=== PATIENT | female | born 1975 | race Caucasian/White ===

== ENCOUNTER → 2017-11-11 13:26 | Outpatient (CLI) | payer OTHER, SELFPAY ==
--- NOTE | 2017-11-11 13:40 | US_ITS ---
US extremity LT limited Ultrasound left axilla Ordering Physician: Josiah Canales MD Patient Age: 42 years: Female HISTORY: ITS.REASON: LYMPHADENOPATHY TECHNIQUE: Ultrasound left axilla. COMPARISON :None FINDINGS Bilobed hypoechoic area with irregular contour seen at left axilla. Overall the bilobed area measuring 3.5 cm length x up to 2.4 cm Depth x 1.9 cm transverse. Hypoechoic central portion demonstrates through transmission with appearance suggesting thick somewhat echogenic fluid, suspect likely purulent fluid..Moderately thick wall with irregular margins noted, particularly towards the more superficial component which measures nearly 2 cm.. Is suspect features reflect Suppurative infected node /developing abscess. With overall history of gradual improvement with antibiotics. Doubt cystic necrotic node or some other process. . The posterior component has a tails which extends slightly posteriorly posteriorly & may extend very slightly deeper . With anterior component has the thicker more irregular wall of this bilobed area.. Each of the lobes of this bilobed area measuring roughly 2 cm. Could be 2 adjacent involve Suppurative lymph nodes We understand a clinically the patient states that there has been improvement and decreased size on antibiotics. However Today's ultrasound shows that there is indeed persistent collection persists an evident. IMPRESSION-- Enlarged Suppurative lymph node node,/ abscess appearing area left axilla. This prominent bilobed thick walled structure filled with echogenic fluid , likely thick purulent fluid, measures up to nearly 3.5 cm length maximally..
== END ==
PROVIDERS: PCP Family Medicine; Visit Provider Family Medicine
DX: R59.1 Generalized enlarged lymph nodes (principal)
CPT/HCPCS: 76882

== ENCOUNTER → 2017-11-22 09:38 | Outpatient (CLI) | payer OTHER, SELFPAY ==
--- NOTE | 2017-11-22 10:13 | US_ITS ---
US breast cyst asp HISTORY: Left breast cystic lesion/abscess ITS.REASON: CYST APIRATION ORDERING PHYSICIAN: Abdifatah Clark MD PATIENT AGE: 42 years COMPARISON: Ultrasound of 11/11/2017 TECHNIQUE: Following obtaining informed consent, using aseptic technique and local anesthesia with buffered lidocaine, fine-needle aspiration was performed of the nodule of interest using sonographic guidance... Serosanguineous appearing fluid aspirated from the complex cystic lesion in the left axilla. A 22-gauge spinal needle was inserted and additional aspiration performed. The cavities decreased in volume during the aspiration. The remainder hypoechoic area deep within the axilla and may been due to a hypoechoic lymph node. Approximate 3 cc of serosanguineous aspirate obtained. The patient tolerated the procedure well without evidence of immediate complications and left the ultrasound suite in stable condition. Specimen was sent for cytology and for aerobic and anaerobic cultures and Gram stain. CYTOLOGY:Negative for malignant cells Culture and sensitivity and Gram stain pending IMPRESSION: Uneventful ultrasound-guided aspiration of cystic lesion in the left axilla. The lesion did decrease in size. Culture and sensitivity pending
== END ==
PROVIDERS: PCP Family Medicine; Visit Provider Surgery
DX: N60.09 Solitary cyst of unspecified breast (principal)
CPT/HCPCS: 76641

== ENCOUNTER → 2018-06-16 16:51 | Outpatient (CLI) | payer OTHER, SELFPAY ==
--- NOTE | 2018-06-16 | MM_ITS ---
MM Dig screening mamm BI w/CAD ORDERING PHYSICIAN : Debbie Orourke PATIENT AGE: 43 years GENDER: Female COMPARISON: December 2016 bowel mammogram. Also note ultrasound October 2017, aspiration INDICATION: ITS.REASON: SCREENING recently taking estrogen, stopped estrogen 05/29/2017 No new complaints. Noncontributory family history TECHNIQUE: Standard CC and MLO images were obtained. R2 CAD reviewed. FINDINGS: There is diffuse increased prominence of the fibroglandular elements throughout both breast reflecting lingering effects the recent exogenous estrogen . On this slightly decreases sensitivity but overall pattern is similar to previous studies but merely exaggerated due to hormone effect. I see no discrete new areas of significant concern RIGHT BREAST:No significant new findings Fibroglandular areas gland regions all appear proportionally enhanced by estimated LEFT BREAST:Fibroglandular tissue is most evident towards the superior left breast on the left. I would direct physical exam to this area but it does seem to match distribution of fibroglandular elements in the previous studies and does seem to dissipate somewhat on the cc view. IMPRESSION: No areas of significant suspicion.. Follow-up in one year adequate Prominent residual estrogen effect bilaterally-with prominence of of fibroglandular elements throughout both breasts bilaterally compared to 2017. This does difficulty to mammography review and decrease sensitivity somewhat however I see no new areas of significant concern and suspicion The more pronounced region of density at at superior strongly favor is merely enhanced previous fibroglandular tissue due to estrogen, but with this I would would directed physical exam to the 12 o'clock position left breast If Any palpable areas encountered here then follow-up spot views and ultrasound could further may be of benefit to further evaluate. . BI-RADS Category: 2 Benign Finding(s) RECOMMENDED FOLLOW-UP: 1YR 1 YEAR FOLLOW-UP Noting comments (A letter has been sent to the patient regarding results of the study.)
== END ==
PROVIDERS: PCP Family Medicine; Visit Provider Obstetrics & Gynecology Gynecology
DX: Z12.31 Encounter for screening mammogram for malignant neoplasm of breast (principal)
CPT/HCPCS: 77067

== ENCOUNTER → 2019-08-06 15:26 | Outpatient (CLI) | payer OTHER, SELFPAY ==
--- NOTE | 2019-08-06 15:32 | MM_ITS ---
PROCEDURE: MM DIG SCREENING MAMM BI W/CAD CLINICAL INDICATION: SCREENING There is no personal or family history of breast cancer COMPARISON: [facility] DIG MAMM-SCREEN BINU W/CAD from 01/18/2017 [facility] MM Dig screening mamm BI w/CAD from 06/16/2018 TECHNIQUE: Standard CC and MLO images were obtained. R2 CAD reviewed. FINDINGS: Moderate diffuse fibroglandular densities are seen throughout both breasts. There is a possible asymmetric density central portion left breast best seen MLO projection and and highlighted by CAD. Recommend the patient return for spot compression views of this lesion and the area that I have marked on the CC projection as well. Ultrasound may be necessary as well though most likely this is a summation shadow. There are no suspicious microcalcifications. IMPRESSION: Moderate diffuse breast density with possible developing asymmetric density left breast versus summation shadow BI-RAD Category: 0 Need Additional Imaging Evaluation FOLLOW-UP: IMM Immediate Follow-up Recommended (A letter has been sent to the patient regarding results of the study.) Dictated by: Dr. Jens Gooden MD 08/07/2019 13:[address] Jens Gooden MD in [place] 08/07/2019 13:04
== END ==
PROVIDERS: PCP Family Medicine; Visit Provider Obstetrics & Gynecology Gynecology
DX: Z12.31 Encounter for screening mammogram for malignant neoplasm of breast (principal)
CPT/HCPCS: 77067

== ENCOUNTER → 2019-08-19 14:02 | Outpatient (CLI) | payer OTHER, SELFPAY ==
--- NOTE | 2019-08-19 14:13 | US_ITS ---
PROCEDURE: MM DIG MAMM DX UNILAT LT CAD the CLINICAL INDICATION: ABN MAMM COMPARISON: [facility] DIG MAMM-SCREEN BINU W/CAD from 01/18/2017 [facility] MM Dig screening mamm BI w/CAD from 06/16/2018 MM DIG SCREENING MAMM BI W/CAD from 08/06/2019 US BREAST LT COMPLETE from 08/19/2019 TECHNIQUE: Problem solving views performed of the left breast along with left breast ultrasound FINDINGS: Average fibroglandular tissue. There is some asymmetry noted in the superior left breast on the MLO view probably not significantly changed from 06/16/2018. There is a 5 mm nodular opacity just posterior to this region. This is not well demonstrated on the CC or rolled CC views. Left breast ultrasound: 5 mm cyst is present at 5 o'clock near the nipple. At 3 o'clock there is a 5 mm cyst. At 6 o'clock there is a 9 x 6 mm hypoechoic lesion with some cystic features. The margins are somewhat obscured. There is however edge artifact. This is wider than tall. The anterior aspect of this lesion is cystic. IMPRESSION: Probably benign findings. Complicated cysts left breast. Recommend six-month mammographic and sonographic follow-up BI-RAD Category: 3 Probably Benign Finding Short Term Follow-up FOLLOW-UP: 6M 6Month Follow-up (A letter has been sent to the patient regarding results of the study.) Dictated by: Ruben Redmond MD 08/24/2019 11:01 Electronically signed by Ruben Redmond MD in [place] 08/24/2019 11:01
== END ==
PROVIDERS: PCP Family Medicine; Visit Provider Obstetrics & Gynecology Gynecology
DX: R92.8 Other abnormal and inconclusive findings on diagnostic imaging of breast (principal)
CPT/HCPCS: 76641; 77065

== ENCOUNTER → 2020-02-22 14:24 | Outpatient (CLI) | payer BC, SELFPAY ==
--- NOTE | 2020-02-22 14:32 | MM_ITS ---
PROCEDURE: MM DIG MAMM DX UNILAT LT CAD Digital Breast Tomosynthesis Included CLINICAL INDICATION: 6 MONTH F/U Follow-up abnormal mammogram COMPARISON: [facility] MM Dig screening mamm BI w/CAD from 06/16/2018 MM DIG SCREENING MAMM BI W/CAD from 08/06/2019 MM DIG MAMM DX UNILAT LT CAD from 08/19/2019 US BREAST LT COMPLETE from 08/19/2019 US BREAST LT COMPLETE from 02/22/2020 TECHNIQUE: Standard CC and MLO images and 3D Tomosynthesis was obtained. R2 CAD reviewed. Left breast ultrasound complete with axilla FINDINGS: There is average fibroglandular tissue.. No malignant appearing mass or malignant-appearing microcalcification is evident. Asymmetry in the central left breast is not significantly changed. Left breast ultrasound: There are scattered small cysts including a 3 mm cyst at 5 o'clock, 4 mm cyst at 3 o'clock, 5 mm cyst at 6 o'clock. The previously noted cluster small cyst at 6 o'clock has decreased in size. IMPRESSION: Benign findings. No significant change. No evidence of malignancy. Recommend bilateral 6 month screening follow-up to put patient back on schedule. BI-RAD Category: 2 Benign Finding(s) FOLLOW-UP: 6M 6Month Follow-up (A letter has been sent to the patient regarding results of the study.) Dictated by: Ruben Redmond MD 02/26/2020 14:19 Electronically signed by Ruben Redmond MD in [place] 02/26/2020 14:19
== END ==
PROVIDERS: PCP Family Medicine; Visit Provider Obstetrics & Gynecology Gynecology
DX: R92.8 Other abnormal and inconclusive findings on diagnostic imaging of breast (principal)
CPT/HCPCS: 76641; 77061; 77065; G0279

== ENCOUNTER → 2020-08-24 07:52 | Outpatient (CLI) | payer BC, SELFPAY ==
--- NOTE | 2020-08-24 08:22 | MM_ITS ---
PROCEDURE: MM DIG SCREENING MAMM BI W/CAD Digital Breast Tomosynthesis Included CLINICAL INDICATION: SCREENING There is no personal or family history of breast cancer. COMPARISON: MG MM DIG SCREENING MAMM BI W/CAD from 08/06/2019 MG MM DIG MAMM DX UNILAT LT CAD from 08/19/2019 MG MM DIG MAMM DX UNILAT LT CAD from 02/22/2020 TECHNIQUE: Standard CC and MLO images and 3D Tomosynthesis was obtained. R2 CAD reviewed. FINDINGS: Moderate diffuse scattered fibroglandular densities are seen in both breasts. The findings are fairly symmetrical bilaterally. There is no suspicious lesion either breast and no suspicious microcalcifications. There are no CAD markings. IMPRESSION: Fibrofatty parenchyma with no suspicious lesions seen BI-RAD Category: 1 Negative FOLLOW-UP: 1YR 1 Year Follow-up (A letter has been sent to the patient regarding results of the study.) Dictated by: Dr. Jens Gooden MD 08/25/2020 16:08 Dr. Jens Gooden MD in [place] 08/25/2020 16:08
== END ==
PROVIDERS: PCP Family Medicine; Visit Provider Obstetrics & Gynecology Gynecology
DX: Z12.31 Encounter for screening mammogram for malignant neoplasm of breast (principal)
CPT/HCPCS: 77063; 77067

== ENCOUNTER → 2021-09-26 07:49 | Outpatient (CLI) | payer BC, SELFPAY ==
--- NOTE | 2021-09-26 07:51 | MM_ITS ---
PROCEDURE INFORMATION: Exam: MG Bilateral Screening 3D Mammography Exam date and time: 09/26/2021 7:51 AM Age: 46 years old Clinical indication: Encounter for screening mammogram for malignant neoplasm of breast TECHNIQUE: Imaging protocol: Bilateral screening tomosynthesis and 2D mammography including computer-aided detection (CAD) when performed. COMPARISON: 1. MG MM DIG SCREENING MAMM BI W/CAD 08/24/2020 8:22 AM 2. MG MM DIG MAMM DX UNILAT LT CAD 02/22/2020 2:40 PM FINDINGS: MAMMOGRAPHY: Breast composition: The breast tissue is heterogeneously dense, which may obscure small masses. Mass: None. Architectural distortion: None. Calcifications: No suspicious calcifications. Asymmetric density: None. Skin thickening: None. Axillary adenopathy: None. IMPRESSION: No mammographic evidence of malignancy. Annual screening is recommended unless otherwise clinically indicated. ASSESSMENT: BI-RADS Category 1: Negative
== END ==
PROVIDERS: PCP Family Medicine; Visit Provider Obstetrics & Gynecology Gynecology
DX: Z12.31 Encounter for screening mammogram for malignant neoplasm of breast (principal)
CPT/HCPCS: 77063; 77067

== ENCOUNTER → 2021-12-01 08:13 | Outpatient (CLI) | payer BC, SELFPAY | PROVIDERS: PCP Family Medicine; Visit Provider Nurse Practitioner | DX: U07.1 COVID-19 (principal) | CPT/HCPCS: C9803; U0003; U0005 ==

== ENCOUNTER → 2022-10-24 07:53 | Outpatient (CLI) | payer BC, SELFPAY ==
--- NOTE | 2022-10-24 07:55 | MM_ITS ---
PROCEDURE INFORMATION: Exam: MG Bilateral Screening 3D Mammography Exam date and time: 10/24/2022 7:44 AM Age: 47 years old Clinical indication: Screening examination TECHNIQUE: Imaging protocol: Bilateral Screening tomosynthesis and 2D mammography including computer-aided detection (CAD) when performed. COMPARISON: 1. MG MM DIG SCREENING MAMM BI W/CAD 09/26/2021 7:56 AM 2. MG MM DIG SCREENING MAMM BI W/CAD 08/24/2020 8:22 AM FINDINGS: MAMMOGRAPHY: Breast composition: There are scattered areas of fibroglandular density. Mass: None. Architectural distortion: None. Calcifications: No suspicious calcifications. Asymmetric density: None. Skin thickening: None. Axillary adenopathy: None. IMPRESSION: No mammographic evidence of malignancy. Annual screening is recommended unless otherwise clinically indicated. ASSESSMENT: BI-RADS Category 1: Negative
== END ==
PROVIDERS: PCP Family Medicine; Visit Provider Obstetrics & Gynecology Gynecology
DX: Z12.31 Encounter for screening mammogram for malignant neoplasm of breast (principal)
CPT/HCPCS: 77063; 77067

== ENCOUNTER 2023-02-13 13:45 | Emergency (ER) | payer OTHER, BC, SELFPAY ==
[2023-02-13 13:45] VITALS: BP 140/97; PULSE 110; RESP 18; TEMP 36.8; O2SAT 99
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
[2023-02-13 14:07] VITALS: PULSE 102; O2SAT 100
[2023-02-13 14:08] VITALS: BMI 30.7
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
[2023-02-13 14:15] VITALS: PULSE 98; O2SAT 96
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
[2023-02-13 14:19] LABS: Urine Pregnancy, HCG Qual. Negative (Negative)
[2023-02-13 14:48] LABS: Basophils # 0.1 K/mm3 (0-0.2); Basophils % 0.5 % (0.1-2.0); Eosinophils # 0.2 K/mm3 (0.0-0.4); Eosinophils % 1.2 % (0.1-12.0); Hematocrit 42.2 % (37.0-47.0); Hemoglobin 14.1 g/dL (12.2-16.2); Lymphocytes # 1.5 K/mm3 (0.7-4.5); Lymphocytes % 11.2 % (10-50); Mean Corpuscular HGB Conc 33.3 g/dL (31.8-35.4); Mean Corpuscular Hemoglobin 31.8 pg (27.0-31.2); Mean Corpuscular Volume 95.3 fl (81-99); Mean Platelet Volume 7.4 fl (7.4-10.4); Monocytes # 0.5 K/mm3 (0.1-1.0); Monocytes % 3.8 % (1.7-9.3); Neutrophils # 11.1 K/mm3 (1.8-7.8); Neutrophils % 83.3 % (37.0-80.0); Platelet Count 349 K/mm3 (142-424); Red Blood Count 4.43 M/mm3 (4.20-5.40); White Blood Count 13.4 K/mm3 (4.8-10.8)
[2023-02-13 14:49] LABS: Chloride 101 mmol/L (98-107); Potassium 3.6 mmoL/L (3.5-5.1); Sodium 138 mmol/L (136-145)
[2023-02-13 14:52] LABS: Anion Gap 12.6 mEq/L (5-15); Blood Urea Nitrogen 13 mg/dl (7-17); Calcium 8.9 mg/dl (8.4-10.2); Carbon Dioxide 28 mmol/L (22.0-30.0); Creatinine Clearance Estimated 133 mL/min (50-200); Estimated Glomerular Filt Rate 90 ml/min (>60); GFR (African American) 109 ML/MIN (>60); Glucose 100 mg/dl (74-100)
[2023-02-13 15:53] VITALS: BP 131/82; PULSE 86; RESP 17; TEMP 36.8; O2SAT 97
== END 2023-02-13 15:59 | disposition home or self-care (01) ==
PROVIDERS: Emergency Provider Emergency Medicine; PCP Family Medicine
DX: R07.89 Other chest pain (principal); M54.9 Dorsalgia, unspecified; V54 Occupant of pick-up truck or van injured in collision with heavy transport vehicle or bus
CPT/HCPCS: 71275; 74174; 80048; 81025; 85025; 99284; 99285; Q9967

== ENCOUNTER 2023-06-10 16:45 | Emergency (ER) | payer BC, SELFPAY ==
[2023-06-10 17:20] VITALS: BP 128/89; PULSE 82; RESP 20; TEMP 37.2; O2SAT 100; BMI 30.2
--- NOTE | 2023-06-10 17:40 | EXP.UTC ---
Discharge Plan Disposition Patient Disposition: Home, Self-Care Condition: Good Prescriptions Prescriptions: New methylprednisolone [Medrol (Nestor)] 4 mg tablets,dose pack See Rx Instructions .Route .COMPLEX 6 Days Qty: 21 0RF Rx Instructions: taper pack; No Action levothyroxine 100 mcg tablet 100 mcg PO DAILY Patient Comments: TAKE 1 TABLET BY MOUTH ONCE DAILY FOR 90 DAYS Referrals Follow up/Referrals: Mj Hernandez MD [Primary Care Provider] - See instructions Activity Restrictions/Add. Instructions Additional Instructions/Restrictions: Start oral steriods tomorrow Over the counter muscle rubs may help with pain Follow up with your Family Doctor if no improvement or any worsening of symptoms Straight to ER if any life threatening symptoms Clinical Impressions Clinical Impression: Back pain with sciatica Instructions Patient Instructions: Sciatica, DI for Sciatica, DI for Back Pain With Sciatica Discharge ED Provider: Lee Ann Carrasco [facility] HPI General Stated complaint: back pain, no accident Mode of Arrival: Ambulatory Source of Information: Patient Limitations: No Limitations Time Seen by Provider: 06/10/23 17:40 Description of Symptoms (Recalled from Triage Doc. by RN): PATIENT C/O SCIATICA PAIN TO RIGHT HIP THAT RADIATES DOWN RIGHT LEG. SHE STATES IT HAS BEEN GOING ON SINCE FEBRUARY BUT HAS GRADUALLY GOTTEN WORSE HEENT Symptoms (Recalled from RN notes): No Resp Symptoms (Recalled from RN notes): No Skin Symptoms (Recalled from RN notes): No MS Symptoms (Recalled from RN notes): Yes Functional Status (Recalled from RN notes): WNL History of Present Illness Provider Complaint: Patient states that she has been having sciatica in her right hip that goes into her right upper leg on and off since February that has continued to get worse States that for the last week it has not let up States that she seen the Chiropractor and they told her she needed to come get some Steriods Denies loss of control of bowel or bladder Related Data Home Medications Medication Instructions Recorded Confirmed levothyroxine 100 mcg tablet 100 mcg PO DAILY Hypothyroid 06/10/23 06/10/23 Previous Rx's Medication Instructions Recorded methylprednisolone 4 mg tablets in See Rx Instructions .Route 06/10/23 a dose pack (Medrol (Nestor)) .COMPLEX 6 days #21 tabs Allergies Allergy/AdvReac Type Severity Reaction Status Date / Time sulfamethoxazole Allergy Verified 06/10/23 17:32 [From Bactrim] trimethoprim [From Bactrim] Allergy Verified 06/10/23 17:32 Worker's Comp Is this a Worker's Comp case?: No [facility] Disclaimer: The information contained in this section may have been updated after the patient was seen, as this information can be updated by other users. Social History Smoking Status: Never smoker alcohol intake: never counseling provided: provider counseling substance use type: denies use current occupational status: employed Travel in the last 8 weeks: None household members: family housing: house ROS Obtained: Yes All systems reviewed & no additional complaints except as documented and Yes Systems reviewed as appropriate & no additional complaints except as documented Constitutional Constitutional: Reports system reviewed and no additional complaints, except as documented, Reports as per HPI, Denies anorexia, Denies body ache, Denies chills and Denies fever(s) Musculoskeletal Musculoskeletal: Reports system reviewed and no additional complaints, except as documented, Reports as per HPI and Reports back pain (right sciatica pain into right hip denies known injury worse since february) Physical Exam General General appearance: alert and in no apparent distress ENT ENT exam: Present mucous membranes moist Respiratory Respiratory exam: Present normal lung sounds bilaterally; Absent respiratory distress or wheezes Cardiovascular Cardiovascular exam: Present regular rate,
[2023-06-10 17:57] VITALS: BP 128/89; PULSE 82; RESP 20; TEMP 37.2; O2SAT 100
== END 2023-06-10 18:05 | disposition home or self-care (01) ==
PROVIDERS: Emergency Provider Nurse Practitioner; PCP Family Medicine
DX: M54.41 Lumbago with sciatica, right side
CPT/HCPCS: 96372; 99204; 99212; G0463

== ENCOUNTER → 2023-07-03 12:10 | Outpatient (CLI) | payer BC, SELFPAY ==
--- NOTE | 2023-07-03 12:21 | XR_ITS ---
FINAL REPORT CLINICAL HISTORY: RT SIDED LOW BACK PAIN COMPARISON: None FINDINGS: 5 views of the lumbar spine were obtained. There is no evidence of fracture or dislocation. The vertebral alignment is normal. Mild degenerative osteophytes are present. No paraspinous soft tissue abnormalities identified. IMPRESSION: No acute bony abnormality. Reviewed, Interpreted and Dictated by Abdifatah Mariscal III, MD Transcribed by Marlene Brownlee Authenticated and [facility]
== END ==
PROVIDERS: PCP Family Medicine; Visit Provider Family Medicine
DX: M54.41 Lumbago with sciatica, right side (principal)
CPT/HCPCS: 72110

== ENCOUNTER → 2023-09-25 09:16 | Outpatient (POV) | payer BC, SELFPAY ==
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
[2023-09-25 10:12] VITALS: BP 120/78; PULSE 67; RESP 18; O2SAT 100; BMI 30.7
== END ==
PROVIDERS: PCP Family Medicine; Visit Provider Nurse Practitioner Family
DX: M51.16 Intervertebral disc disorders with radiculopathy, lumbar region (principal); M54.50 Low back pain, unspecified; G89.29 Other chronic pain; M79.604 Pain in right leg
CPT/HCPCS: 99202; G0463

== ENCOUNTER 2023-10-11 09:44 | Day surgery (SDC) | payer BC, SELFPAY ==
[2023-10-11 10:15] VITALS: BP 140/74; PULSE 74; RESP 16; TEMP 36.2; O2SAT 98; BMI 30.7
[2023-10-11 10:19] VITALS: BP 135/84; PULSE 63; O2SAT 97
[2023-10-11 10:25] VITALS: BP 135/84; PULSE 66; O2SAT 97
[2023-10-11 10:30] VITALS: BP 119/80; PULSE 67; RESP 16; O2SAT 98
--- NOTE | 2023-10-11 10:44 | EXP.PAIN.PRO ---
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 Lumbar radiculopathy. Lumbar spinal stenosis. Post-procedure Diagnosis:: Same. Indications for Procedure:: Very pleasant 48-year-old female comes our clinic today for right L4-5, L5-S1 transforaminal epidural steroid injection. Patient reports low right lumbar hip pain as well as right leg radicular symptoms to the foot. She describes the pain as constant, dull, aching, sharp, stabbing at times. She rates her pain 7/10. Procedure Details:: Details of the procedure were explained to the patient. The patient was taken the procedure room placed in the prone position. The area of the lumbar spine was cleansed using chlorhexidine as a cleansing solution. At this time using fluoroscopy guidance markers were placed on the right lateral border of the L4 and L5 vertebral body. The skin and subcutaneous tissue was anesthetized using 1% lidocaine and 25-gauge needle. At this time using a 22-gauge 3-1/2 inch spinal needle the right upper one third of the L4-5 foramen was accessed. The same was done at the right L5-S1 foramen. Needle positions were confirmed and a lateral view using fluoroscopy and contrast dye. At this time 1 cc of 1% lidocaine +20 mg of Depo-Medrol was injected at each level after negative aspiration. [place] were removed. Band-Aid applied. Patient tolerated the procedure without difficulty. There are no complications. Plan and Disposition:: Patient was discharged without incident.
== END 2023-10-11 10:30 | disposition home or self-care (01) ==
PROVIDERS: PCP Family Medicine; Visit Provider Nurse Anesthetist, Certified Registered
DX: M51.16 Intervertebral disc disorders with radiculopathy, lumbar region (principal); M48.061 Spinal stenosis, lumbar region without neurogenic claudication
CPT/HCPCS: 64483; 64484; J1030

== ENCOUNTER → 2023-10-25 13:22 | Outpatient (CLI) | payer BC, SELFPAY ==
--- NOTE | 2023-10-25 13:30 | MM_ITS ---
PROCEDURE INFORMATION: Exam: MG Bilateral Screening 3D Mammography Exam date and time: 10/25/2023 1:19 PM Age: 48 years old Clinical indication: Screening mammogram TECHNIQUE: Imaging protocol: Bilateral Screening tomosynthesis and 2D mammography including computer-aided detection (CAD) when performed. COMPARISON: 1. MG MM DIG SCREENING MAMM BI W/CAD 10/24/2022 7:44 AM 2. MG MM DIG SCREENING MAMM BI W/CAD 09/26/2021 7:56 AM 3. MG MM DIG SCREENING MAMM BI W/CAD 08/24/2020 8:22 AM 4. MG MM DIG MAMM DX UNILAT LT CAD 02/22/2020 2:40 PM FINDINGS: MAMMOGRAPHY: Breast composition: There are scattered areas of fibroglandular density. Mass: None. Architectural distortion: No new or suspicious architectural distortion. Calcifications: No new or suspicious calcifications are present Asymmetric density: No new or suspicious asymmetric density is present Skin thickening: None. Axillary adenopathy: None. IMPRESSION: No mammographic evidence of malignancy. Recommend annual screening mammography unless otherwise clinically indicated. ASSESSMENT: BI-RADS category 1: Negative
== END ==
LOC: RAD 13:23
PROVIDERS: PCP Family Medicine; Visit Provider Obstetrics & Gynecology Gynecology
DX: Z12.31 Encounter for screening mammogram for malignant neoplasm of breast (principal)
CPT/HCPCS: 77063; 77067

== ENCOUNTER → 2023-10-29 13:35 | Outpatient (POV) | payer BC, SELFPAY ==
[2023-10-29 13:54] VITALS: BP 111/73; PULSE 80; RESP 18; O2SAT 100; BMI 30.7
--- NOTE | 2023-10-29 14:05 | A.OFFVIS_ITS ---
[facility] Pain Management SOAP Note Subjective:: Patient is a very pleasant 48-year-old female comes to clinic today for follow- up visit after receiving her right 4 5 and L5-S1 transforaminal epidural steroid injection on 10/11/2023. Patient reports no relief. She continues with low back pain as well as right hip and leg radicular symptoms to the foot. Patient's MRI shows extruded disc fragment at L5-S1 which produces marked narrowing of the right lateral foramen. Patient has neurosurgery consultation this . Objective:: Patient is awake alert [place] x 3. In no acute distress. Flexion-extension lumbar spine somewhat guarded secondary to pain. Deep tendon reflexes upper and lower extremities normal. Motor strength upper and lower extremities normal. There is no gross sensory deficit. Gait is normal. Assessment:: Degenerative disc lumbar spine multilevels. Lumbar radiculopathy. Disc bulge lumbar spine multilevels. Plan:: Patient will return as needed. [facility] Disclaimer: The information contained in this section may have been updated after the patient was seen, as this information can be updated by other users. Medical History Hypothyroidism Surgical History H/O removal of cyst H/O total hysterectomy H/O tubal ligation History of appendectomy History of cholecystectomy Family History Other Celiac disease Diabetes Hypothyroidism Social History Smoking Status: Never smoker alcohol intake: never counseling provided: provider counseling substance use type: denies use current occupational status: employed Travel in the last 8 weeks: None household members: family housing: house
== END ==
LOC: SC.PAIN 13:36
PROVIDERS: PCP Family Medicine; Visit Provider Nurse Anesthetist, Certified Registered
DX: M51.16 Intervertebral disc disorders with radiculopathy, lumbar region (principal); M51.26 Other intervertebral disc displacement, lumbar region
CPT/HCPCS: 99212; G0463

== ENCOUNTER 2023-11-05 11:16 | Emergency (ER) | payer BC, SELFPAY ==
[2023-11-05 11:18] VITALS: BP 150/75; PULSE 68; RESP 18; TEMP 36.7; O2SAT 99; BMI 30.7
[2023-11-05 12:12] VITALS: BP 144/76; PULSE 63; O2SAT 98
[2023-11-05] MEDS: METHOCARBAMOL 500MG TABLET 750 MG PO (12:35)
[2023-11-05] MEDS: DEXAMETHASONE 4MG TABLET 10 MG PO (12:35)
[2023-11-05] MEDS: KETOROLAC 30MG/ML VIAL 30 MG IM (12:35)
[2023-11-05] MEDS: diazePAM 2MG TABLET 2 MG PO ×2 (12:36→14:11)
[2023-11-05] MEDS: LIDOCAINE 5% TRANSDERMAL PATCH 1 EACH TP (12:36)
--- NOTE | 2023-11-05 12:44 | HMH.EDGENADL ---
Discharge Plan Disposition Patient Disposition: Home, Self-Care Prescriptions Prescriptions: New prednisone 20 mg tablet 40 mg PO DAILY 5 Days Qty: 10 0RF No Action levothyroxine 100 mcg tablet 100 mcg PO DAILY Patient Comments: TAKE 1 TABLET BY MOUTH ONCE DAILY FOR 90 DAYS Referrals Follow up/Referrals: Mj Hernandez MD [Primary Care Provider] - See instructions Clinical Impressions Clinical Impression: Lumbar radiculopathy Instructions Patient Instructions: DI for Low Back Pain Discharge ED Provider: Aston Cornejo General Adult HPI General Chief complaint: Back Pain/Injury Stated complaint: herniaated disc pain L5s1 down leg Time Seen by Provider: 11/05/23 11:29 Mode of Arrival: Ambulatory Source of Information: Patient Limitations: No Limitations Description of Symptoms (Recalled from ER Triage Doc. by RN): Patient reports history of herniated disc and was started on Lyrica on . States she sneezed multiple times on and now her back pain has increasingly gotten worse. Complaint of all right sided back pain down to her right knee. History of Present Illness HPI narrative: 48-year-old female history of herniated disc on the right side presenting with severe back pain. Patient states that she has L5-S1 herniated. She has surgery scheduled, but is unable to make it to the surgery secondary to severe pain. Taking Lyrica, this does not seem to help. Denies bowel or bladder dysfunction, saddle anesthesia numbness, or any other concerns. Related Data Home Medications Medication Instructions Recorded Confirmed levothyroxine 100 mcg tablet 100 mcg PO DAILY Hypothyroid 06/10/23 10/29/23 Previous Rx's Medication Instructions Recorded prednisone 20 mg tablet 40 mg PO DAILY 5 days #10 tabs 11/05/23 Allergies Allergy/AdvReac Type Severity Reaction Status Date / Time sulfamethoxazole Allergy Verified 10/11/23 10:16 [From Bactrim] trimethoprim [From Bactrim] Allergy Verified 10/11/23 10:16 [facility] Disclaimer: The information contained in this section may have been updated after the patient was seen, as this information can be updated by other users. Medical History (Updated 11/05/23 @ 15:25 by Aston Cornejo MD) Hypothyroidism Surgical History H/O removal of cyst H/O total hysterectomy H/O tubal ligation History of appendectomy History of cholecystectomy Family History Other Celiac disease Diabetes Hypothyroidism Social History Smoking Status: Never smoker alcohol intake: never counseling provided: provider counseling substance use type: denies use current occupational status: employed Travel in the last 8 weeks: None household members: family housing: house ROS Obtained: Yes All systems reviewed & no additional complaints except as documented Physical Exam General General appearance: alert and in distress Head Head exam: atraumatic and normocephalic Eye Eye exam: Present normal appearance, PERRL and EOMI ENT ENT exam: Present mucous membranes moist Neck Neck exam: Present normal inspection, full ROM and trachea midline Respiratory Respiratory exam: Absent respiratory distress, wheezes, stridor, accessory muscle use or prolonged expiratory phase Cardiovascular Cardiovascular exam: Present normal rhythm Abdominal Exam Abdominal exam: Present soft; Absent distention, tenderness, guarding, rebound or rigidity Extremities Exam Extremities exam: Absent edema Neurological Exam Neurological exam: Present alert, oriented X3, CN II-XII intact and normal gait; Absent motor sensory deficit Skin Skin exam: Present warm and dry; Absent diaphoresis or erythema Medical Decision Making Medical Records Medical records reviewed: Yes I reviewed the patient's medical records. Eduard Inquiry Pt receiving controlled substance: No Eduard was queried for this patient: No Vital Signs: 11/05/23 11:18 11/05/23 12:12 Temperature 98.1 F Temperature Source Oral Pulse Rate 63 Pulse Rate [Radial] 68 Respiratory Rate 18 Blood Pressure 144/76 H Blood Pressure [Right Arm] 150/75 H Blood Pressure Mean [Right Arm] 100 Blood Pressure Source [Right Arm] Automatic Cuff Blood Pressure Position [Right Arm] Sitting 02 Sat by Pulse Oximetry 99 98 Oxygen Delivery Method Room Air Room Air Orders (Tests/Meds): ED MEDICATIONS Discontinued Medications Generic Name Dose Route Start Last Admin Trade Name Freq PRN Reason Stop Dose Admin Dexamethasone 10 mg 11/05/23 12:27 11/05/23 12:35 Dexamethasone 4mg Tablet PO 11/05/23 12:28 10 mg ONCE ONE Administration Diazepam 2 mg 11/05/23 12:27 11/05/23 12:36 Diazepam 2mg Tablet PO 11/05/23 12:28 2 mg ONCE ONE Administration Diazepam 2 mg 11/05/23 14:03 11/05/23 14:11 Diazepam 2mg Tablet PO 11/05/23 14:04 2 mg ONCE ONE Administration Ketorolac Tromethamine 30 mg 11/05/23 12:27 11/05/23 12:35 Ketorolac 30mg/Ml Vial IM 11/05/23 12:28 30 mg ONCE ONE Administration Lidocaine 1 each 11/05/23 12:27 11/05/23 12:36 Lidocaine 5% Transdermal Patch TP 11/05/23 12:28 1 each ONCE ONE Administration Methocarbamol 750 mg 11/05/23 12:27 11/05/23 12:35 Methocarbamol 500mg Tablet PO 11/05/23 12:28 750 mg ONCE ONE Administration Medical Decision Narrative: 48-year-old female history of herniated disc on the right side presenting with severe back pain. Patient states that she has L5-S1 herniated. She has surgery scheduled, but is unable to make it to the surgery secondary to severe pain. Taking Lyrica, this does not seem to help. Denies bowel or bladder dysfunction, saddle anesthesia numbness, or any other concerns. Patient has untreated herniated disc disease which is complicating current care. History was obtained via conversation with patient. On arrival, patient hemodynamically stable, alert, oriented x4, appropriate, GCS 15, moving all extremities spontaneously, pupils equal and reactive to light. Full physical exam performed and significant for tearful, in obvious pain. Neurologically intact, but patient having difficulty extending at hip secondary to severe pain. Also having difficulty flexing the hip secondary to severe pain. Patient was given Toradol, Robaxin, Valium 2 mg p.o., Decadron for symptomatic management and correction of underlying abnormalities. Hematologic workup and urine were considered, but deemed unnecessary at this time because patient having history consistent with herniated disc radiculopathy. No red flag signs or symptoms, so MRI not deemed necessary at this time either. On reevaluation, patient still feeling as she did arrival. Given patient presentation, workup, history, this most likely represents radiculopathy secondary to disc herniation. Critical Care Critical Care Time Critical Care Time: No
--- NOTE | 2023-11-05 14:46 | PC.NURSE ---
to the restroom
[2023-11-05 15:35] VITALS: BP 147/68; PULSE 70; RESP 20; TEMP 36.7; O2SAT 99
== END 2023-11-05 15:36 | disposition home or self-care (01) ==
PROVIDERS: Emergency Provider Emergency Medicine; PCP Family Medicine
DX: M54.16 Radiculopathy, lumbar region (principal); M51.27 Other intervertebral disc displacement, lumbosacral region; E03.9 Hypothyroidism, unspecified
CPT/HCPCS: 96372; 99283

== ENCOUNTER 2024-02-03 10:30 | Outpatient (POV) | payer BC, SELFPAY ==
[2024-02-03 10:38] VITALS: BP 143/84; PULSE 75; RESP 20; O2SAT 100; BMI 33.3
--- NOTE | 2024-02-03 10:48 | EXP.PAIN.SOA ---
[facility] Pain Management SOAP Note Subjective:: Patient is a pleasant 48-year-old female who presents today for follow-up. Today she rates her pain a 2 out of 10 however she states that will get much higher as the day goes on and she increases her activity. Patient does describe this as a aching, throbbing sensation with occasional sharp shooting pains down her entire right extremity. From our last visit the patient has had a discectomy of L5-S1. She states prior to this procedure her pain had increased in severity. And that this operation did help take it back down to its baseline. She states however that she has not noticed any additional improvement in her low back and leg symptoms overall. Patient does state the pain interferes with her ability to perform activities of daily living such as cooking and cleaning. Patient did previously have a right transforaminal injection back in September however she did not notice any significant relief. Patient states that her neurosurgeon was recommending she follow back up with our office and try another injection. Patient has tried and failed conservative therapy such as oral medication, heat and ice, topicals, recent physical therapy for longer than 6 weeks. She is currently prescribed pregabalin from her neurosurgeon. Her Eduard has been reviewed and is appropriate. Review of Systems: General: No recent weight changes, no fever, no sleep disturbances Respiratory: No cough, no shortness of air, no recurring pulmonary infections Cardiovascular/peripheral vascular: No chest pain, no palpitations, no edema, no shortness of breath Gastrointestinal: No new onset incontinence, normal bowel movements reported Genitourinary: No new onset incontinence Musculoskeletal: Low back pain, right leg pain Psychiatric: [Normal mood/affect] Neurological: [Denies weakness in extremities], [denies balance issues] Objective:: Physical Exam: General: Alert and oriented x3, no acute distress, pleasant and cooperative Lungs: Respirations even and unlabored, symmetrical chest expansion Eyes: PERRL Musculoskeletal: Flexion and extension of lumbar [spine] somewhat guarded secondary to pain, [antalgic gait noted] Neurological: Speech clear, no gross sensory deficit Assessment:: Degenerative disc disease of lumbar spine with lumbar radiculopathy symptoms, recent lumbar discectomy Plan:: Patient is experiencing worsening pain in her low back and right leg with limited range of motion. Patient has recently undergone a lumbar discectomy with no additional improvement. She has also tried a right transforaminal with minimal relief. I have discussed with patient that she may benefit from a lumbar epidural steroid injection. Risk and benefits were discussed with patient and she would like to proceed forward with this plan of care. Patient is not on any blood thinners. I will also order the patient a compounded cream. Patient has tried and failed conservative therapy including recent physical therapy for longer than 6 weeks. Patient will be scheduled for an LESI L4-L5 under fluoroscopy. Patient has been instructed to contact the clinic with any concerns before the next appointment. Dr. Forde has reviewed this note and agrees with this plan of care. This note was dictated using voice recognition software and make contain errors or omissions. [facility] Disclaimer: The information contained in this section may have been updated after the patient was seen, as this information can be updated by other users. Medical History (Updated 11/05/23 @ 15:25 by Aston Cornejo MD) Hypothyroidism Surgical History H/O total hysterectomy H/O removal of cyst History of cholecystectomy H/O tubal ligation History of appendectomy Family History Other Celiac disease Diabetes Hypothyroidism Social History Smoking Status: Never smoker alcohol intake: never counseling provided: provider counseling substance use type: denies use current occupational status: employed Travel in the last 8 weeks: None household members: family housing: house
== END 2024-02-03 23:59 ==
LOC: SC.PAIN 10:30
PROVIDERS: PCP Family Medicine; Visit Provider Nurse Practitioner Family
DX: M51.16 Intervertebral disc disorders with radiculopathy, lumbar region (principal); Z98.890 Other specified postprocedural states
CPT/HCPCS: 99212; G0463

== ENCOUNTER 2024-02-25 08:06 | Day surgery (SDC) | payer BC, SELFPAY ==
[2024-02-25 08:30] VITALS: BP 137/75; PULSE 73; RESP 16; TEMP 36.6; O2SAT 97; BMI 34.1
[2024-02-25 09:06] VITALS: BP 134/89; PULSE 60; RESP 18; O2SAT 99
[2024-02-25] MEDS: methylPREDNISolone ACETATE 80MG/ML VIAL 80 MG (09:06)
[2024-02-25 09:07] VITALS: BP 134/89; PULSE 65; RESP 18; O2SAT 99
[2024-02-25 09:10] VITALS: BP 147/93; PULSE 67; RESP 18; O2SAT 97
--- NOTE | 2024-02-25 09:42 | EXP.PAIN.PRO ---
Procedure Date: 02/25/24 Time: 09:00 Anesthesiologist:: Gildardo Mccracken CRNA Complications:: None Pre-procedure Diagnosis:: Degenerative disc lumbar spine multilevels. Lumbar radiculopathy. Disc bulge L4-5. Postlaminectomy syndrome. Post-procedure Diagnosis:: Same. Indications for Procedure:: Patient is a very pleasant 48-year-old female comes our clinic today for lumbar epidural steroid injection L4-5 level. Patient is status post right side discectomy/laminectomy October of this year. She is continuing to have right hip and leg radicular symptoms that she describes as constant, dull, aching. She rates her pain 6/10. Procedure Details:: Procedure: Lumbar epidural steroid injection under fluoroscopy Informed consent was obtained and the risks and benefits of the procedure were explained to the patient. The patient was taken to the procedure room and noninvasive monitors placed, including noninvasive blood pressure cuff and pulse oximeter. The back was viewed using C-arm Fluoroscopy and prepped using Chloraprep as a cleansing solution and the L4-L5 interspace was palpated. Skin and subcutaneous tissues were anesthetized using lidocaine 1.5% and a 25-gauge needle. After this, an 18-gauge Touhy epidural needle was placed into the L4-L5 interspace and advanced using fluoroscopic guidance and loss of resistance to air until the epidural space was encountered. After confirmation of needle placement in the epidural space, with dye, a solution containing normal saline, 3 mL and Depo-Medrol 80 mg were incrementally injected into the lumbar epidural space. The patient tolerated the procedure well with no complications. The patient was observed in the Pain Clinic and then discharged home neurologically intact. Plan and Disposition:: Patient was discharged without incident.
== END 2024-02-25 09:10 | disposition home or self-care (01) ==
LOC: SC.PAINP 08:06
PROVIDERS: PCP Family Medicine; Visit Provider Nurse Anesthetist, Certified Registered
DX: M51.16 Intervertebral disc disorders with radiculopathy, lumbar region (principal); M51.26 Other intervertebral disc displacement, lumbar region; M96.1 Postlaminectomy syndrome, not elsewhere classified
CPT/HCPCS: 62323; J1010

== ENCOUNTER 2024-03-11 10:02 | Outpatient (POV) | payer BC, SELFPAY ==
[2024-03-11 10:04] VITALS: BP 137/94; PULSE 73; RESP 18; TEMP 36.7; O2SAT 98; BMI 33.3
--- NOTE | 2024-03-11 10:19 | A.OFFVIS_ITS ---
[facility] Pain Management SOAP Note Subjective:: Patient is a pleasant 48-year-old female who presents today for follow-up of lumbar epidural steroid injection L4-L5 on 02/25/2024. Today she rates her pain a 2 out of 10. Patient states that she does think it may have helped some. She states that she does notice that where she was having to take her pain medicines routinely every 4 hours on the.that she has been able to go for longer periods of time without these medications. She states now that she frequently just takes 1 in the morning and then 1 around 2 or 3 PM and then when she goes to bed. Patient denies any new trauma or injury. She does state that she is scheduled to follow-up with her neurosurgeon there in the next week or so. She states that the compounded cream she got is seeming to help. Her Eduard has been reviewed and is appropriate. Review of Systems: General: No recent weight changes, no fever, no sleep disturbances Respiratory: No cough, no shortness of air, no recurring pulmonary infections Cardiovascular/peripheral vascular: No chest pain, no palpitations, no edema, no shortness of breath Gastrointestinal: No new onset incontinence, normal bowel movements reported Genitourinary: No new onset incontinence Musculoskeletal: Low back pain Psychiatric: [Normal mood/affect] Neurological: [Denies weakness in extremities], [denies balance issues] Objective:: Physical Exam: General: Alert and oriented x3, no acute distress, pleasant and cooperative Lungs: Respirations even and unlabored, symmetrical chest expansion Eyes: PERRL Musculoskeletal: Flexion and extension of lumbar [spine] somewhat guarded secondary to pain, [antalgic gait noted] Neurological: Speech clear, no gross sensory deficit Assessment:: Degenerative disc disease of lumbar spine with lumbar radiculopathy symptoms, lumbar postlaminectomy syndrome Plan:: Patient has been able to decrease her oral medicines due to overall pain improvement in her low back. I have counseled the patient that we will plan on following up with her in 1 month following her neurosurgery appointment to see what recommendations he gave as well as to see how her pain is progressing. Patient will return to clinic in 1 month for reevaluation of symptoms and plan of care. Patient has been instructed to contact the clinic with any concerns before the next appointment. Dr. Forde has reviewed this note and agrees with this plan of care. This note was dictated using voice recognition software and make contain errors or omissions. [facility] Disclaimer: The information contained in this section may have been updated after the patient was seen, as this information can be updated by other users. Medical History Hypothyroidism Surgical History H/O total hysterectomy H/O removal of cyst History of cholecystectomy H/O tubal ligation History of appendectomy Family History Other Celiac disease Diabetes Hypothyroidism Social History Smoking Status: Never smoker alcohol intake: never counseling provided: provider counseling substance use type: denies use current occupational status: employed Travel in the last 8 weeks: None household members: family housing: house
== END 2024-03-11 23:59 | disposition home or self-care (01) ==
LOC: SC.PAIN 10:03
PROVIDERS: PCP Family Medicine; Visit Provider Nurse Practitioner Family
DX: M51.16 Intervertebral disc disorders with radiculopathy, lumbar region (principal); M96.1 Postlaminectomy syndrome, not elsewhere classified
CPT/HCPCS: 99212; G0463

== ENCOUNTER 2024-04-15 08:13 | Outpatient (CLI) | payer BC, SELFPAY ==
--- NOTE | 2024-04-15 08:18 | XR_ITS ---
FINAL REPORT CLINICAL HISTORY: LT THUMB PAIN FINDINGS: Left thumb Three views were obtained. There is no acute fracture or dislocation. The joint spaces appear normal. No soft tissue abnormality is identified. IMPRESSION: No acute process. Reviewed, Interpreted and Dictated by Noemi Valentino MD Transcribed by Marifer Martin Authenticated and [facility]
== END 2024-04-15 23:59 | disposition home or self-care (01) ==
LOC: RAD 08:14
PROVIDERS: PCP Family Medicine; Visit Provider Family Medicine
DX: M79.645 Pain in left finger(s) (principal)
CPT/HCPCS: 73140

== ENCOUNTER 2024-10-27 08:00 | Outpatient (RCR) | payer BC, SELFPAY | END 2024-10-27 23:59 | disposition home or self-care (01) | LOC: PT 08:00 | PROVIDERS: PCP Family Medicine; Visit Provider Orthopaedic Surgery | DX: M54.50 Low back pain, unspecified (principal); Z98.890 Other specified postprocedural states | CPT/HCPCS: 97110; 97140; 97163; 97164 ==

== ENCOUNTER 2024-11-20 08:00 | Outpatient (RCR) | payer BC, SELFPAY | END 2024-11-20 23:59 | disposition home or self-care (01) | LOC: PT 08:00 | PROVIDERS: PCP Family Medicine; Visit Provider Orthopaedic Surgery | DX: Z98.890 Other specified postprocedural states (principal) | CPT/HCPCS: 97110; 97140; 97530 ==

== ENCOUNTER 2024-12-01 08:02 | Outpatient (CLI) | payer BC, SELFPAY ==
--- NOTE | 2024-12-01 08:07 | MM_ITS ---
PROCEDURE INFORMATION: Exam: MG Bilateral Screening 3D Mammography Exam date and time: 12/01/2024 8:11 AM Age: 49 years old Clinical indication: Screening examination. A paternal cousin had breast cancer. TECHNIQUE: Imaging protocol: Bilateral Screening tomosynthesis and 2D mammography including computer-aided detection (CAD) when performed. COMPARISON: 1. MG MM DIG SCREENING MAMM BI W/CAD 10/25/2023 1:19 PM 2. MG MM DIG SCREENING MAMM BI W/CAD 10/24/2022 7:44 AM 3. MG MM DIG SCREENING MAMM BI W/CAD 09/26/2021 7:56 AM 4. MG MM DIG SCREENING MAMM BI W/CAD 08/24/2020 8:22 AM FINDINGS: MAMMOGRAPHY: Breast composition: There are scattered areas of fibroglandular density. Mass: None. Architectural distortion: None. Calcifications: No suspicious calcifications. Asymmetric density: None. Skin thickening: None. Axillary adenopathy: None. IMPRESSION: No mammographic evidence of malignancy. Annual screening is recommended unless otherwise clinically indicated. ASSESSMENT: BI-RADS Category 1: Negative.
== END 2024-12-01 23:59 | disposition home or self-care (01) ==
LOC: RAD 08:03
PROVIDERS: PCP Family Medicine; Visit Provider Obstetrics & Gynecology Gynecology
DX: Z12.31 Encounter for screening mammogram for malignant neoplasm of breast (principal)
CPT/HCPCS: 77063; 77067

== ENCOUNTER 2025-03-25 12:40 | Emergency (ER) | payer OTHER, BC, SELFPAY ==
[2025-03-25 12:47] VITALS: BP 170/80; PULSE 78; RESP 18; TEMP 36.9; O2SAT 99; BMI 33.7
--- NOTE | 2025-03-25 12:51 | HMH.EDGENADL ---
Discharge Plan Disposition Patient Disposition: Home, Self-Care Prescriptions Prescriptions: No Action levothyroxine 100 mcg tablet 100 mcg PO DAILY Patient Comments: TAKE 1 TABLET BY MOUTH ONCE DAILY FOR 90 DAYS prednisone 20 mg tablet 40 mg PO DAILY 5 Days Qty: 10 0RF tramadol 50 mg tablet 50 mg PO Q8H Patient Comments: TAKE 1 TABLET BY MOUTH EVERY 8 HOURS NEEDED FOR MODERATE PAIN pregabalin 100 mg capsule 100 mg PO TID Patient Comments: TAKE 1 CAPSULE BY MOUTH THREE TIMES DAILY Referrals Follow up/Referrals: Mj Hernandez MD [Primary Care Provider, Medical] - See instructions Van Ojeda DO [Staff Physician, Orthopedics] - See instructions Activity Restrictions/Add. Instructions Additional Instructions/Restrictions: At this time it was felt you are safe to be discharged home. If new or worsening symptoms please do not hesitate to return the emergency department. Use your sling for comfort and call and schedule an appointment with orthopedics as soon as you are able do not do any heavy straining with the affected arm until you see orthopedics. Clinical Impressions Clinical Impression: Biceps rupture, proximal Print Language Print Language: [place] Discharge ED Provider: Reza Arvziu General Adult HPI <Sabra Knox APRN - Last Filed: 03/25/25 14:31> General Chief complaint: Extremity Injury, Upper Stated complaint: WC-03/25 1140-sharp pain R bicep Time Seen by Provider: 03/25/25 12:42 History of Present Illness HPI narrative: Leonor Parada is a 49-year-old female past medical history significant for hypothyroidism who presents emergency room today with complaints of a tearing sensation in her right bicep. 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 States it sound like tearing fabric . She had immediate pain to the right bicep region. Noted to have a hardened area of muscle on the right bicep. States it only hurts if she tries to straighten her arm. Denies any pain at this time or not. Did take some Motrin prior to arrival. Is not on any blood thinners. Please note that the above description of symptoms, and this electronic medical record under categorization of recalled from ER triage doctor by RN are reflective of an initial nursing assessment, however, is not reflective of my full history and physical exam that was personally taken and clarified. Consequentially, this proceeding description of symptoms, which may include the patient's cauterized chief complaint in the EMR, do not reflect my personal clinical impression, and the ultimate description of the history of present illness stated complaints should be deferred to this section of this note. Unless stated otherwise were congruent with the section of the note, additional signs, symptoms, or incongruence can be interpreted as in or accurate with my clinical impression. Related Data Home Medications ?Medication ?Instructions ?Recorded ?Confirmed levothyroxine 100 mcg tablet 100 mcg PO DAILY Hypothyroid 06/10/23 02/25/24 pregabalin 100 mg capsule 100 mg PO TID 02/03/24 02/25/24 tramadol 50 mg tablet 50 mg PO Q8H 02/03/24 02/25/24 Previous Rx's ?Medication ?Instructions ?Recorded prednisone 20 mg tablet 40 mg (2 x 20 mg) PO DAILY 5 days 11/05/23 #10 tabs Allergies Allergy/AdvReac Type Severity Reaction Status Date / Time sulfamethoxazole (From Allergy Verified 02/25/24 08:31 Bactrim) trimethoprim (From Bactrim) Allergy Verified 02/25/24 08:31 PFSH <Sabra Knox APRN - Last Filed: 03/25/25 14:31> PFS Disclaimer: The information contained in this section may have been updated after the patient was seen, as this information can be updated by other users. Medical History (Updated 03/25/25 @ 13:54 by Reza Arvizu MD) Hypothyroidism Surgical History H/O total hysterectomy H/O removal of cyst History of cholecystectomy H/O tubal ligation History of appendectomy Family History Other Celiac disease Diabetes Hypothyroidism Social History Smoking Status: Never smoker alcohol intake: never counseling provided: provider counseling substance use type: denies use current occupational status: employed Travel in the last 8 weeks?: None household members: family housing: house Other Medical History Have you received the Flu Vaccine for this season: Yes Have you received the Pneumonia Vaccine: No <Sabra Knox APRN - Last Filed: 03/25/25 14:31> ROS Obtained: Yes Systems reviewed as appropriate & no additional complaints except as documented Physical Exam <Sabra Knox APRN - Last Filed: 03/25/25 14:31> General General appearance: alert and in no apparent distress Head Head exam: atraumatic and normocephalic Eye Eye exam: Present PERRL and EOMI Chest Chest inspection: Present symmetric chest wall rise Respiratory Respiratory exam: Present normal lung sounds bilaterally Cardiovascular Cardiovascular exam: Present regular rate and normal rhythm Abdominal Exam Abdominal exam: Present soft and normal bowel sounds; Absent tenderness Extremities Exam Extremities exam: Present other (Right bicep with positive Reece sign) Neurological Exam Neurological exam: Present alert and oriented X3 Skin Skin exam: Present warm, dry and intact Medical Decision Making <Sabra Knox APRN - Last Filed: 03/25/25 14:31> Medical Records Screening: Per USPSTF and CDC recommendations, given the prevalence of disease in our region, it is our hospital?s policy to screen for HIV and viral Hepatitis for all patients aged 18 and over and those with ongoing risk factors. Eduard Inquiry Pt receiving controlled substance: No Vital Signs: 03/25/25 12:47 03/25/25 14:30 Temperature 98.5 F 98.4 F Temperature Source Oral Oral Pulse Rate 76 Pulse Rate [Left] 78 Respiratory Rate 18 15 Blood Pressure 135/75 Blood Pressure [Left Arm] 170/80 H Blood Pressure Mean [Left Arm] 110 Blood Pressure Source Automatic Cuff Blood Pressure Position Sitting 02 Sat by Pulse Oximetry 99 Oxygen Delivery Method Room Air Room Air Orders (Tests/Meds): ORDERS Category Date Time Status Shoulder XR right miminum 2 views [XR shoulder RT min Exams 03/25/25 12:58 Completed 2V] Stat XR elbow RT 2V Stat Exams 03/25/25 12:58 Completed Medical Decision Narrative: In summary patient is an 49-year-old female who presents emergency department for evaluation of right bicep pain and tearing sensation heard. 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 Patient is hemodynamically stable upon arrival, afebrile. Physical exam remarkable for positive Reece sign on the right bicep, otherwise nonfocal exam. No pain reported at this time.. Differential diagnosis includes bicep tear versus shoulder dislocation. Initial workup will be conducted with plain films of the right shoulder and right elbow. Initial interventions include patient not complaining of any pain at this time, will continue with multimodal pain management with ice and a sling. Initial workup reviewed by me and final read of patient's shoulder and elbow x-ray reviewed by me did not show any acute fracture. Upon repeat evaluation patient continued to be virtually pain-free, no complaints at this time. given this patient deemed appropriate for discharge at this time. She was placed in a sling and was given follow-up instructions with orthopedic surgery Dr. Ojeda. She should alternate with Tylenol, Motrin or other NSAIDs, keep your arm in a sling, and use ice for pain management. Follow-up with orthopedic surgery as soon as able to get appointment. <Reza Arvizu MD - Last Filed: 03/25/25 15:46> Vital Signs: 03/25/25 12:47 03/25/25 14:30 Temperature 98.5 F 98.4 F Temperature Source Oral Oral Pulse Rate 76 Pulse Rate [Left] 78 Respiratory Rate 18 15 Blood Pressure 135/75 Blood Pressure [Left Arm] 170/80 H Blood Pressure Mean [Left Arm] 110 Blood Pressure Source Automatic Cuff Blood Pressure Position Sitting 02 Sat by Pulse Oximetry 99 Oxygen Delivery Method Room Air Room Air Orders (Tests/Meds): ORDERS Category Date Time Status Shoulder XR right miminum 2 views [XR shoulder RT min Exams 03/25/25 12:58 Completed 2V] Stat XR elbow RT 2V Stat Exams 03/25/25 12:58 Completed Medical Decision Narrative: In summary patient is an 49-year-old female who presents emergency department for evaluation of right bicep pain and tearing sensation heard. 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 Patient is hemodynamically stable upon arrival, afebrile. Physical exam remarkable for positive Reece sign on the right bicep, otherwise nonfocal exam. No pain reported at this time.. Differential diagnosis includes bicep tear versus shoulder dislocation. Initial workup will be conducted with plain films of the right shoulder and right elbow. Initial interventions include patient not complaining of any pain at this time, will continue with multimodal pain management with ice and a sling. Initial workup reviewed by me and final read of patient's shoulder and elbow x-ray reviewed by me did not show any acute fracture. Upon repeat evaluation patient continued to be virtually pain-free, no complaints at this time. given this patient deemed appropriate for discharge at this time. She was placed in a sling and was given follow-up instructions with orthopedic surgery Dr. Ojeda. She should alternate with Tylenol, Motrin or other NSAIDs, keep your arm in a sling, and use ice for pain management. Follow-up with orthopedic surgery as soon as able to get appointment. I was consulted by the ZACHARY, and we discussed the complexity of the problems being addressed. I approved the treatment and management plan for this patient's care in the emergency department, thus performing a substantive portion of the medical decision making. Reza Arvizu MD Critical Care <Sabra Knox, SKIING INSTRUCTOR - Last Filed: 03/25/25 14:31> Critical Care Time Critical Care Time: No
--- OUTSIDE RECORDS SUMMARY | 2025-03-25 12:51 | XMS_ITS | Continuity of Care Document ---
Author Organization [facility] Address [address] [facility] [address] [place] [id number] Insurance Providers Payer Plan Claims Address Claims Phone Policy Number Group Number Relation Employer Guarantor Name Guarantor Guarantor Address Guarantor Phone Zora atwood [id number] Self Crystal Tal 1975 [address] [place] [id number] [employer] [place] [employer] [id number] [place] [address] tel:[phone] Self Crystal Tal 1975 [address] [place] [address] [employer]E [place] [employer]IEL D PPO [id number] [place] [address] tel:[phone] [id number] Self Crystal Tal 1975 [address] [place] [address] Problems Unknown Problems Results Test Value / Unit Interpretation Reference Ran Comp. Metabolic Panel (14)[[id number]] Collected: 04/09/2023 08:37 PM Specimen Received: 04/09/2023 05:00 AM Source: [facility] Glucose [039104] 86 mg/dL 70-99 mg/dL BUN [844743] 12 mg/dL 6-24 mg/dL Creatinine [171330] 0.98 mg/dL 0.57-1.0 0 mg/dL eGFR [567364] 72 mL/min/1.73 >59 mL/min/1 .73 BUN/Creatinine Ratio [294940] 12 9-23 Sodium [461406] 141 mmol/L 134-144 mmol /L Potassium [225558] 4.9 mmol/L 3.5-5.2 m mol/L Chloride [880888] 102 mmol/L 96-106 mmo l/L Carbon Dioxide, Total [944618] 25 mmol/L 20-29 mmol/L Calcium [083778] 9.3 mg/dL 8.7-10.2 mg /dL Protein, Total [511655] 6.7 g/dL 6.0- 8.5 g/dL Albumin [598515] 4.7 g/dL 3.8-4.8 g/d L Globulin, Total [270411] 2.0 g/dL 1.5 -4.5 g/dL A/G Ratio [737381] 2.4 H 1.2-2.2 Bilirubin, Total [111224] 0.4 mg/dL 0. 0-1.2 mg/dL Alkaline Phosphatase [487687] 72 IU/L 44-121 IU/L AST (SGOT) [135615] 15 IU/L 0-40 IU/ L ALT (SGPT) [989757] 18 IU/L 0-32 IU/ L Lipid Panel[792126] Collected: 04/09/2023 08:37 PM Specimen Received: 04/09/2023 05:00 AM Source: [facility] Cholesterol, Total [802729] 178 mg/dL 100-199 mg/dL Triglycerides [664154] 131 mg/dL 0-149 mg/dL HDL Cholesterol [564620] 58 mg/dL >39 mg/dL VLDL Cholesterol Rich [676596] 23 mg/dL 5-40 mg/dL LDL Chol Calc (NIH) [219467] 97 mg/dL 0-99 mg/dL Albumin/Creatinine Ratio,Uri ne[198369] Collected: 04/09/2023 08:37 PM Specimen Received: 04/09/2023 05:00 AM Source: [facility] Creatinine, Urine [782328] 74.7 mg/dL N ot Estab. mg/dL Albumin, Urine [991279] 3.0 ug/mL Not Estab. ug/mL Verified by repeat analysi s Alb/Creat Ratio [289934] 4 mg/g creat 0-2 9 mg/g creat Normal: 0 - 29 Moderately in creased: 30 - 300 Severely increased: >300 Hemoglobin A1c[029459] Collected: 04/09/2023 08:37 PM Specimen Received: 04/09/2023 05:00 AM Source: [facility] Hemoglobin A1c [301823] 5.3 % 4.8- 5.6 % . Prediabetes: 5.7 - 6.4 Cami betes: >6.4 Glycemic control for adults with diabetes: 7.0 Allergies, adverse reactions, alerts No known allergies and adverse reactions Medications No administered medications reported Vital Signs No vital signs reported Social History No smoking Hx information available
--- NOTE | 2025-03-25 12:58 | XR_ITS ---
FINAL REPORT CLINICAL HISTORY: bicep tear COMPARISON: None FINDINGS: 2 views of the elbow were obtained. There is no acute fracture or dislocation. The joint spaces are intact. There is no joint effusion. The soft tissues are unremarkable. IMPRESSION: No acute process. Reviewed, Interpreted and Dictated by Kris Smith MD Transcribed by Fatimah Huff Authenticated and [facility]
--- NOTE | 2025-03-25 12:58 | XR_ITS ---
FINAL REPORT CLINICAL HISTORY: bicep tear, COMPARISON: None FINDINGS: RIGHT SHOULDER Three views demonstrate no acute fracture or dislocation. The visualized joint spaces are normally aligned. The soft tissues are unremarkable. IMPRESSION: No acute process. Reviewed, Interpreted and Dictated by Kris Smith MD Transcribed by Fatimah Huff Authenticated and [facility]
[2025-03-25 14:30] VITALS: BP 135/75; PULSE 76; RESP 15; TEMP 36.9; O2SAT 98
== END 2025-03-25 14:29 | disposition home or self-care (01) ==
PROVIDERS: Emergency Provider Emergency Medicine; PCP Family Medicine
DX: S46.111A Strain of muscle, fascia and tendon of long head of biceps, right arm, initial encounter (principal); E03.9 Hypothyroidism, unspecified
CPT/HCPCS: 73030; 73070; 99283

== ENCOUNTER 2025-07-16 12:46 | Outpatient (CLI) | payer OTHER, SELFPAY ==
--- NOTE | 2025-07-16 12:50 | MR_ITS ---
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 hx lumbar surgery 1 year ago. right sided low back pain. COMPARISON: 09/11/2023 FINDINGS: Sagittal images show normal vertebral height. Alignment is normal. There are discogenic endplate signal changes at L4-5 and L5-S1. T12-L1: Unremarkable L1-2: Unremarkable L2-3: Unremarkable L3-4: Unremarkable L4-5: Mild annular disc bulge is stable. L5-S1: Mild annular disc bulge. Previously noted moderate stenosis right lateral central disc protrusion no longer evident. Enhancing soft tissue right lateral canal compatible with epidural fibrosis which encases the right S1 nerve root. IMPRESSION: Interval discectomy L5-S1 with annular disc bulge but no recurrent disc protrusion. Scar tissue in the right canal encases the right S1 nerve root. No new levels of disc disease. Reviewed, Interpreted and Dictated by Noemi Valentino MD Transcribed by Fatimah Huff Authenticated and [facility]
--- OUTSIDE RECORDS SUMMARY | 2025-07-16 12:50 | XMS_ITS | Continuity of Care Document ---
Author Organization [facility] Address [address] [facility] [address] [place] [address] Insurance Providers Payer Plan Claims Address Claims Phone Policy Number Group Number Relation Employer Guarantor Name Guarantor Guarantor Address Guarantor Phone Zora atwood [id number] Self Crystal Tal 1975 [address] [place] [id number] [employer] [place] [employer] [id number] [place] [address] tel:[phone] Self Crystal Tal 1975 [address] [place] [address] [employer]EL D PPO [id number] [place] [address] tel:[phone] [id number] Self Crystal Tal 1975 [address] [place] [address] Problems Unknown Problems Results Test Result Date/Time Value / Unit Interp. Refere nce Range Comp. Metabolic Panel (14)[[id number]] Collected: 04/09/2023 08:37 PM Specimen Received: 04/09/2023 05:00 AM Source: [facility] Glucose [[id number]] 04/10/2023 09:12 AM 86 mg/dL 70-99 mg/dL BUN [488107] 04/10/2023 09:11 AM 12 mg/dL 6-2 4 mg/dL Creatinine [506109] 04/10/2023 09:01 AM 0.98 mg/dL 0.57-1.00 mg/dL eGFR [916631] 04/10/2023 09:01 AM 72 mL/min/1.73 >59 mL/min/1.73 BUN/Creatinine Ratio [307906] 04/10/2023 09:11 AM 12 9-23 Sodium [674059] 04/10/2023 09:06 AM 141 mmol/L 134-144 mmol/L Potassium [476970] 04/10/2023 09:07 AM 4.9 mmol/L 3.5-5.2 mmol/L Chloride [334028] 04/10/2023 08:56 AM 102 mmol/L 96-106 mmol/L Carbon Dioxide, Total [452079] 04/10/2023 09:10 AM 25 mmol/L 20-29 mmol/L Calcium [542661] 04/10/2023 09:10 AM 9.3 mg/dL 8.7-10.2 mg/dL Protein, Total [601584] 04/10/2023 09:14 AM 6.7 g/dL 6.0-8.5 g/dL Albumin [308522] 04/10/2023 09:14 AM 4.7 g/dL 3.8-4.8 g/dL Globulin, Total [811848] 04/10/2023 09:14 AM 2.0 g/dL 1.5-4.5 g/dL A/G Ratio [640689] 04/10/2023 09:14 AM 2.4 H 1.2-2.2 Bilirubin, Total [574083] 04/10/2023 09:15 AM 0.4 mg/dL 0.0-1.2 mg/dL Alkaline Phosphatase [930728] 04/10/2023 09:15 AM 72 IU/L 44-121 IU/L AST (SGOT) [372186] 04/10/2023 09:14 AM 15 IU/L 0-40 IU/L ALT (SGPT) [123246] 04/10/2023 09:15 AM 18 IU/L 0-32 IU/L Lipid Panel[918280] Collected: 04/09/2023 08:37 PM Specimen Received: 04/09/2023 05:00 AM Source: [facility] Cholesterol, Total [[id number]] 04/10/2023 10:11 AM 178 mg/dL 100-199 mg/d L Triglycerides [627049] 04/10/2023 10:08 AM 131 mg/dL 0-149 mg/dL HDL Cholesterol [441138] 04/10/2023 10:12 AM 58 mg/dL >39 mg/dL VLDL Cholesterol Rich [434694] 04/10/2023 10:12 AM 23 mg/dL 5-40 mg/dL LDL Chol Calc ([facility]) [214410] 04/10/2023 10:12 AM 97 mg/dL 0-99 mg/dL Albumin/Creatinine Ratio,Uri ne[910919] Collected: 04/09/2023 08:37 PM Specimen Received: 04/09/2023 05:00 AM Source: [facility] Creatinine, Urine [[id number]] 04/10/2023 12:55 PM 74.7 mg/dL Not Estab. m g/dL Albumin, Urine [463682] 04/10/2023 12:55 PM 3.0 ug/mL Not Estab. ug/mL Verified by repeat analysi s Alb/Creat Ratio [[id number]] 04/10/2023 12:55 PM 4 mg/g creat 0-29 mg/g creat Normal: 0 - 29 Moderately in creased: 30 - 300 Severely increased: >300 Hemoglobin A1c[805689] Collected: 04/09/2023 08:37 PM Specimen Received: 04/09/2023 05:00 AM Source: [facility] Hemoglobin A1c [[id number]] 04/10/2023 08:40 AM 5.3 % 4.8-5.6 % . Prediabetes: 5.7 - 6.4 Cami betes: >6.4 Glycemic control for adults with diabetes: 7.0 Allergies, adverse reactions, alerts No known allergies and adverse reactions Medications No administered medications reported Vital Signs No vital signs reported Social History No smoking Hx information available
--- OUTSIDE RECORDS SUMMARY | 2025-07-16 12:50 | XMS_ITS | Clinical Summary ---
Author Organization [facility] Address [address] [place] [address] Care Team Providers Care Sprinkler Fitter Name Role Phone Mj Hernandez MD Primary Care Provider + [phone] Allergies Active Allergy Reactions Criticality Noted Date Comments Sulfa Antibiotics Hives Low 10/31/2023 Medications ibuprofen (ADVIL,MOTRIN) 800 MG tablet Take 1 tablet by mouth Every 6 (Six) Hours As Needed for Mild Pain. Active acetaminophen (TYLENOL) 500 MG tablet Take 2 tablets by mouth Every 4 (Four) Hours As Needed for Mild Pain. Active levothyroxine (SYNTHROID, LEVOTHROID) 100 MCG tablet Take 1 tablet by mouth Daily. Active phentermine 15 MG capsule TAKE 1 CAPSULE BY MOUTH ONCE DAILY IN THE MORNING WITH THE FIRST MEAL OF THE DAY 02/10/2024 Active pregabalin (LYRICA) 100 MG capsuleIndicati ons:S/P discectomy Take 1 capsule by mouth 4 (Four) Times a Day. 120 capsule 04/28/2024 Active Active Problems Problem Noted Date Diagnosed Date S/P discectomy 11/28/2023 Lumbar spondylosis 11/01/2023 Right leg pain 11/01/2023 Family History Medical History Relation Name Comments Thyroid disease Mother Tatyana Cates C8 related diagnosis Thyroid disease Sister 1 Musa Higuera C8 related d iagnosis Thyroid disease Sister 2 Shelby Gonsalez [id number] di agnosis Thyroid disease Sister 3 Maribel Gonzalez [id number] diagnosis Relation Name Status Comments Mother Tatyana Cates Sister 1 Musa Higuera Sister 2 Shelby Gonsalez Sister 3 Maribel Shaulis Social History Tobacco Use Types Packs/Day Years Used Date Smoking Tobacco: Never Passive Smoke Exposure: Never Smokeless Tobacco: Never Alcohol Use Standard Drinks/Week Comments Never 0 (1 standard drink = 0.6 oz pur e alcohol) Abuse Screen Answer Date Recorded Feels Unsafe at Home or Work/School no 11/13/2023 Feels Threatened by Someone no 10/28 Does Anyone Try to Keep You From Having Contact with Others or Doing Things Outside Your Home? no 11/13/2023 Physical Signs of Abuse Present no 11/13/2023 Housing Stability Answer Date Recorded Current Living Arrangements home 10/28 Potentially Unsafe Housing Conditions Not on j luis e 11/13/2023 Family and Community Support Answer Esrgio e Recorded Help with Day-to-Day Activities Not on file 08/07/2023 Lonely or Isolated Not on file 08/07/2023 Employment Answer Date Recorded Do you want help finding or keeping work or a morteza b? Not on file 08/07/2023 Disabilities Answer Date Recorded Difficulty Concentrating, Remembering or Making Decisions no 11/13/2023 Difficulty Managing Errands Independently no 11/13/2023 Education Answer Date Recorded Help with school or training? Not on file Preferred Language [place] Island[place] 11/11/2023 Comments No Sex and Gender Information Value Date Recorded Sex Assigned at Not on file Legal Sex Female 11:53 AM EDT Gender Identity Not on file Sexual Orientation Not on file Last Filed Vital Signs Vital Sign Reading Time Taken Comments Blood Pressure 120/80 01/09/2024 10:19 AM EDT Pulse 67 11/28/2023 2:42 PM EST Temperature 36.7 C (98 F) 03/19/2024 9:31 AM EDT Respiratory Rate 14 11/13/2023 1:30 PM EST Oxygen Saturation 98% 11/28/2023 2:42 PM EST Inhaled Oxygen Concentration - - Weight 93.9 kg (207 lb) 03/19/2024 9:31 AM EDT Height 165.1 cm (5' 5 ) 03/19/2024 9:31 AM EDT Body Mass Index 34.45 03/19/2024 9:31 AM EDT Plan of Treatment Health Maintenance Due Date Last Done Comments Annual Gynecologic Pelvic an d Breast Exam 1976 TDAP/TD VACCINES (1 - Tdap) 1995 MAMMOGRAM 2016 COLOGUARD 2021 COLON CANCER SCREENING 5 YEA R SIGMOIDOSCOPY 2021 COLONOSCOPY 2021 COL[address]AL CANCER SCREENING 2021 CT COLONOGRAPHY 2021 FECAL OCCULT BLOOD TEST 2021 FIT Testing (1 year) 2021 ANNUAL PHYSICAL 10/31/2023 HEPATITIS C SCREENING 10/31/2023 INFLUENZA VACCINE 05/28/2025 10/03/2018 Pneumococcal Vaccine 0-49 Aged Out No longer eligible based on patient's age to complete this topic Medical Devices Implanted Type Area Research Mechanic Device Identifier Shelf Expiration Date Model / Serial / Lot Kt Seal Hemos Abs Floseal Matrx Fast/Prep 10ml - [id number] Implanted:Qty : 1 on 11/13/2023 by Etienne Daly MD at [facility] Implant N/A: Spine Lumbar Fieldbook [id number] / / NA Hemost Abs Surgifoam [id number] [id number] 10mm - [id number] Implanted:Qty : 1 on 11/13/2023 by Etienne Daly MD at [facility] Implant N/A: Spine Lumbar [employer] 08/08/2027 [id number] / / [id number] Insurance PPO Care Teams Sprinkler Fitter Relationship Specialty Start Date End Date Mj Hernandez MD [address] [place] [address] [place] [id number] PCP - General Family Medicine 10/11/23
[2025-07-16] MEDS: SODIUM CHLORIDE 0.9% 10ML SYR (RAD ONLY) 10 ML IV (13:49)
[2025-07-16] MEDS: GADOTERIDOL INJ 20ML SYRINGE 19 ML IV (13:50)
== END 2025-07-16 23:59 | disposition home or self-care (01) ==
LOC: RAD 12:48
PROVIDERS: PCP Family Medicine; Visit Provider Orthopaedic Surgery
DX: M51.379 Other intervertebral disc degeneration, lumbosacral region without mention of lumbar back pain or lower extremity pain (principal); M53.88 Other specified dorsopathies, sacral and sacrococcygeal region; Z98.890 Other specified postprocedural states
CPT/HCPCS: 72158; A9576

== ENCOUNTER 2025-07-22 08:00 | Outpatient (RCR) | payer OTHER, BC, SELFPAY | END 2025-07-22 23:59 | disposition home or self-care (01) | LOC: PT 08:00 | PROVIDERS: PCP Family Medicine; Visit Provider Orthopaedic Surgery | DX: M51.9 Unspecified thoracic, thoracolumbar and lumbosacral intervertebral disc disorder (principal) | CPT/HCPCS: 97110; 97162 ==

== ENCOUNTER 2025-07-30 08:00 | Outpatient (RCR) | payer OTHER, BC, SELFPAY | END 2025-07-30 23:59 | disposition home or self-care (01) | LOC: PT 08:00 | PROVIDERS: PCP Family Medicine; Visit Provider Orthopaedic Surgery | DX: M51.26 Other intervertebral disc displacement, lumbar region (principal) | CPT/HCPCS: 97014; 97110; 97140; G0283 ==